=== PATIENT | male | born 1955 | race Caucasian/White ===

== ENCOUNTER → 2025-03-03 08:14 | Outpatient (REF) | payer MEDICARE, OTHER, SELFPAY | LOC: HWRAD 08:14 | PROVIDERS: ATTENDING PHYSICIAN Family Medicine Geriatric Medicine; FAMILY PHYSICIAN Emergency Medicine | DX: M54.41 Lumbago with sciatica, right side (principal); C61 Malignant neoplasm of prostate | CPT/HCPCS: 72131 ==